=== PATIENT | male | born 2000 | race Caucasian/White ===

== ENCOUNTER 2022-06-30 08:57 | Emergency (ER) | payer SELFPAY ==
[2022-06-30 09:08] VITALS: BP 154/88; PULSE 82; RESP 16; TEMP 35.9; O2SAT 99
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
== END 2022-06-30 09:56 | disposition home or self-care (01) ==
PROVIDERS: Emergency Provider Nurse Practitioner Family
DX: S01.91XD Laceration without foreign body of unspecified part of head, subsequent encounter (principal); V49.9XXD Car occupant (driver) (passenger) injured in unspecified traffic accident, subsequent encounter
CPT/HCPCS: 99211; G0463

== ENCOUNTER 2022-08-10 08:17 | Emergency (ER) | payer MEDICAID, SELFPAY ==
[2022-08-10 08:33] VITALS: BP 155/87; PULSE 83; RESP 16; TEMP 36.6; O2SAT 99
--- NOTE | 2022-08-10 08:58 | ED.SKABFB ---
HPI - Skin/Abscess/Foreign Bdy General Chief complaint: Skin/Abscess/Foreign Body Stated complaint: cyst on chest Time Seen by Provider: 08/10/22 08:50 Source: patient, RN notes reviewed and old records reviewed Mode of arrival: ambulatory Limitations: no limitations History of Present Illness HPI narrative: 21 year old male present to [facility] care with an abscess to lower sternum region for one week duration. Patient reports that area has drained some clear fluid and area is very painful, reports history of previous abscess to same area about 2 years ago that did not require medical intervention. Patient reports that he has applied warm compresses to area. Area is 5cm by 5cm in size and red with fluctuant tissue. MD complaint: abscess/boil Onset (ago): week(s) (1) Severity scale (1-10): 5 Treatments prior to arrival: other (warm compresses) Related Data Allergies Allergy/AdvReac Type Severity Reaction Status Date / Time NKDA Allergy Mild Other Uncoded 08/10/22 08:49 Review of Systems Review of Systems: CONSTITUTIONAL: Denies fever, chills, or sweats. CARDIOVASCULAR: Denies chest pain, palpitations, or edema. RESPIRATORY: Denies cough or dyspnea. GASTROINTESTINAL: Denies abdominal pain, nausea, vomiting SKIN: Reports redness and swelling painful abscess to mid chest region Denies purulent drainage from wound, tissue is fluctuant and is painful. MUSCULOSKELETAL: Denies myalgia. NEUROLOGIC: Denies headache, numbness All systems reviewed & are unremarkable except as noted in HPI and below PMFSH Comments At time of signature, agree with nursing past medical, surgical, social and family history. There is no relevant family history pertinent to the presenting complaint Exam Narrative: GENERAL: Well-appearing, well-nourished, and in no acute distress. HEAD: Normocephalic, atraumatic. EYES: PERRLA and EOMI. ENT: Nares clear, no rhinorrhea or epistaxis. Mucous membranes moist. NECK: Supple. no lymphadenopathy CHEST: Clear to auscultation. No respiratory distress.SAO2 99% on room air HEART: Regular rate and rhythm. No murmur heard. Normal peripheral pulses. ABDOMEN: Soft, nontender, nondistended, normal active bowel sounds. EXTREMITIES: Normal range of motion. No edema. SKIN: Warm, dry. Erythema, induration, tenderness, warmth with sharp margins noted 5cm by 5cm Fluctuant tissue noted to lower sternal region, increased discomfort on palpation of area. NEURO: No focal deficits. Alert and oriented x3. Course Course Emergency Course: Patient is aware of diagnosis, understands and agrees to treatment plan. Anticipatory guidance given. Patient agrees to follow-up as directed and is aware of reasons to seek care at the emergency department. Portions of this record may have been created with voice recognition software Level of Care: Express Care Visit Vital Signs Vital signs: Vital Signs Temperature 36.6 C 08/10/22 08:33 Pulse Rate 83 08/10/22 08:33 Respiratory Rate 16 08/10/22 08:33 Blood Pressure 155/87 H 08/10/22 08:33 Pulse Oximetry 99 08/10/22 08:33 Oxygen Delivery Room Air 08/10/22 08:33 Temperature 36.6 C 08/10/22 08:33 Pulse Rate 83 08/10/22 08:33 Respiratory Rate 16 08/10/22 08:33 Blood Pressure 155/87 H 08/10/22 08:33 Pulse Oximetry 99 08/10/22 08:33 Oxygen Delivery Room Air 08/10/22 08:33 Reviewed Procedures Abscess I/D chest: Irrigation: Yes mid lower sternal chest: Date of Incision: 08/10/22 Time of Incision: 09:00 Sedation/analgesia: none Local Anesthetic: lidocaine 1% (2 ml) Amount of anesthesia used (mL): 2 Technique: incised with #11 blade Amount of fluid expressed (mL): 25 Irrigation: Yes Packing used?: iodoform I&D Results: Pus (odorous) and Blood Complications: other (none) Abcess I&D Additional Comments: wound cleansed with Primaderm and Betadine swabs X3 prior to incision and c
== END 2022-08-10 09:35 | disposition home or self-care (01) ==
PROVIDERS: Emergency Provider Registered Nurse
DX: L02.213 Cutaneous abscess of chest wall (principal)
CPT/HCPCS: 10061; 87070; 87075; 87076; 87205; 99213; G0463

== ENCOUNTER 2022-12-31 11:17 | Emergency (ER) | payer OTHER, SELFPAY ==
--- NOTE | 2022-12-31 11:47 | ED.SKABFB ---
HPI - Skin/Abscess/Foreign Bdy General Chief complaint: Skin/Abscess/Foreign Body Stated complaint: cyst on chest Time Seen by Provider: 12/31/22 11:47 Source: patient Mode of arrival: ambulatory Limitations: no limitations History of Present Illness HPI narrative: Levi is a 22-year-old male patient presenting to the clinic today with complaints of a possible cyst on his chest wall x4 days. He reports it is becoming more painful, swollen, and red. Is having pain with moving of his bilateral arms and moving the chest wall. Was seen for same issue back in August and had an incision and drainage performed at that time. He denies any fever or chills. Related Data Allergies Allergy/AdvReac Type Severity Reaction Status Date / Time NKDA Allergy Mild Other Uncoded 08/10/22 08:49 Review of Systems Review of Systems: Pertinent positives per HPI. Patient denies any fever, chills, rash, headache, visual changes, dizziness, cough, runny nose, sore throat, shortness of breath, chest pain, palpitations, nausea, vomiting, diarrhea, constipation, abdominal pain, or any urinary issues. PMFSH Comments At the time of my signature, I reviewed and agree with the nursing past medical, surgical, social, and family history. There is no relevant family history pertinent to the patient complaint. Exam Narrative: General: Well-developed, well nourished, in no apparent distress Head: Normocephalic, atraumatic. Cardio: Regular rate and rhythm, s1 and s2 normal, no murmur appreciated. Resp: Clear to auscultation bilaterally, no rhonchi, rales, wheezing or rubs. Integumentary: [place], warm, and dry, tennis ball-sized infected sebaceous cyst to the mid chest wall over the sternum. Tenderness to palpation with fluctuance. Incision and drainage was performed Course Course Emergency Course: Portions of this record may have been created with voice recognition software. Level of Care: Express Care Visit Vital Signs Vital signs: Vital signs reviewed Procedures Abscess I/D chest: Date of Incision: 12/31/22 Local Anesthetic: lidocaine 1% Amount of anesthesia used (mL): 4 Technique: incised with #11 blade Amount of fluid expressed (mL): 20 Irrigation: No Packing used?: plain (Quarter-inch) I&D Results: Pus and Blood Complications: other (None) Abcess I&D Additional Comments: Verbal consent obtained for incision and drainage. Risk and benefits explained and patient voiced understanding. Area was cleansed with betadine. Area was prepped and draped using sterile technique. 27 gauge needle was then used to instill 4() ml of lidocaine without epi into the wound edges. Patient tolerated well and anesthesia was appropriate. An 11 blade scalpel was then used to make a 0.5cm incision over the abscess. White bloody cottage cheese like exudate expressed from cavity. Wound culture obtained and sent to lab. Quarter-inch plain packing was placed into the wound cavity patient tolerated procedure well. MDM - Skin/Abscess/Foreign Bdy MDM Narrative Medical decision making narrative: At the time of visit patient is resting comfortably on the exam table. Incision and drainage was performed in the clinic today and quarter-inch packing was placed into the wound cavity. Culture was obtained. Patient had infected sebaceous cyst to the chest wall. Prescription for doxycycline was sent to the pharmacy and supportive measures were discussed with the patient he voiced understanding of discharge instructions agrees to treatment plan Differential Diagnosis Differential diagnosis: Likely abscess of skin or subcutaneous tissue, cellulitis, insect bites and other (Infected cyst) Discharge Plan Discharge Clinical Impression: Infected sebaceous cyst of skin Patient Disposition: Home, Self-Care Condition: Stable Instructions: Antibiotic Form, Cyst (ED), Incision and Drainage (ED) Additional Instructi
[2022-12-31 11:57] VITALS: BP 139/87; PULSE 88; RESP 16; TEMP 36.1; O2SAT 99
== END 2022-12-31 12:53 | disposition home or self-care (01) ==
PROVIDERS: Emergency Provider Nurse Practitioner Family
DX: L72.3 Sebaceous cyst (principal)
CPT/HCPCS: 10060; 87070; 87075; 87147; 87181; 87186; 87205; 99213; G0463